=== PATIENT | female | born 1960 | race Caucasian/White ===

== ENCOUNTER → 2016-12-06 | Outpatient (CLI) | payer MEDICARE ==
--- NOTE | 2016-12-07 13:04 | CR ---
EXAM DATE: 12/06/16 PATIENT'S AGE: 56 Patient: BEATRICE WELLS Facility: [place], [place] Site . Site : [id number] Study: XRay Chest [id number]/23/2017 4:48:38 PM Ordering Physician: Shin Zimmerman Final Report: INDICATION: Cough for 4 days TECHNIQUE: Chest 2 views. COMPARISON: November 30, 2014 FINDINGS: Cardiovascular and mediastinum: Heart size and vasculature are normal in caliber and appearance. Mediastinum is within normal limits. Lungs and pleural spaces: Lungs are clear. No sign of infiltrate or mass. No sign of pleural effusion. No pneumothorax. Bones and soft tissues: No significant findings. IMPRESSION: No sign of acute disease. Dictated by Nikki Cortez MD @ Dec 07 2016 12:40AM (Electronic Signature) Report Signed by Proxy and Original Signed Document filed in the Medical Record. MTDD
== END | disposition home or self-care (01) ==
LOC: MW.CHFP 16:16
PROVIDERS: ATTEND Physician Assistant
DX: R05 Cough (principal); J20.9 Acute bronchitis, unspecified
CPT/HCPCS: 36415; 71020; 85025; G0463

== ENCOUNTER 2018-10-21 09:21 | Day surgery (SDC) | payer MEDICARE ==
[~2018-10-21 09:21] MED LIST: Lactated Ringers 1,000 ML IV SCH; Sodium Chloride 0.9% 10 ML Syringe FLUSH PRN; Sodium Chloride 0.9% 2.5 ML Syringe FLUSH PRN
[2018-10-21] MEDS ORDERED: Propofol 200 MG/20 ML SDV ONE (09:32)
[2018-10-21] MEDS ORDERED: Lidocaine 2% 5 ML SDV ONE (09:32)
[2018-10-21] MEDS ORDERED: Midazolam 1 MG/ML 2 ML SDV ONE (09:32)
[2018-10-21] MEDS ORDERED: fentaNYL 100 MCG/2 ML SDV ONE (09:33)
--- NOTE | 2018-10-21 10:08 | PCM.PREANE ---
Preanesthetic Assessment - Anesthesia/Transfusion/Family Hx Anesthesia History: Prior Anesthesia Without Reaction Other Type of Anesthesia Reaction Comment: Reports "very slow to come out of it ", no known family hx prblms Family History of Anesthesia Reaction: No Transfusion History: No Prior Transfusion(s) - Review of Systems General: No Symptoms Pulmonary: No Symptoms Cardiovascular: No Symptoms Gastrointestinal: No Symptoms Neurological: Other (cerebral palsey) - Physical Assessment NPO Status Date: 10/20/18 Height: 1.63 m Weight: 81.647 kg ASA Class: 2 Mental Status: Alert & Oriented x3 Airway Class: Mallampati = 2 Dentition: Reports: Normal Dentition ROM/Head Extension: Full Lungs: Clear to Auscultation, Normal Respiratory Effort Cardiovascular: Regular Rate, Regular Rhythm - Allergies Allergies/Adverse Reactions: Allergies Allergy/AdvReac Type Severity Reaction Status Date / Time No Known Allergies Allergy Verified 10/15/18 11:15 - Blood Blood Available: No - Anesthesia Plan Pre-Op Medication Ordered: None - Acknowledgements Anesthesia Type Planned: MAC Pt an Appropriate Candidate for the Planned Anesthesia: Yes Alternatives and Risks of Anesthesia Discussed w Pt/Guardian: Yes Pt/Guardian Understands and Agrees with Anesthesia Plan: Yes Additional Comments: PMH: cerebral palsy, GERD PLAN: MAC/TIVA PreAnesthesia Questionnaire Gastrointestinal History: Reports: GERD Musculoskeletal History: Reports: Osteoarthritis Neurological History: Reports: Cerebral Palsy, Other (See Below) Other Neuro History: uses walker and wheelchair Endocrine/Metabolic History: Reports: Obesity/BMI 30+, Osteopenia - Past Surgical History Head Surgeries/Procedures: Reports: None HEENT Surgical History: Reports: Naso-Sinus Surgery Other HEENT Surgeries/Procedures: hx septoplasty Musculoskeletal Surgical History: Reports: Knee Replacement Other Musculoskeletal Surgeries/Procedures:: hx kamla knee replacements - SUBSTANCE USE Smoking Status *Q: Never Smoker Recreational Drug Use History: No - HOME MEDS Home Medications: Home Meds Calcium Carbonate [Calcium] 1 tab.chew CHEW DAILY 10/15/18 [History] Cholecalciferol (Vitamin D3) [Vitamin D3] 1,000 units PO DAILY 10/15/18 [History ] Multivitamin [Multivitamins] 1 tab PO DAILY 10/15/18 [History] Omeprazole Magnesium [Prilosec Otc] 20 mg PO DAILY 10/15/18 [History] - CURRENT (IN HOUSE) MEDS Current Meds: Current Medications Lactated Ringer's (Ringers, Lactated) 1,000 mls @ 125 mls/hr IV ASDIRECTED MARISOL Sodium Chloride (Saline Flush) 10 ml FLUSH ASDIRECTED PRN PRN Reason: Keep Vein Open Sodium Chloride (Saline Flush) 2.5 ml FLUSH ASDIRECTED PRN PRN Reason: Keep Vein Open Sodium Chloride (Saline Flush) 10 ml FLUSH ASDIRECTED PRN PRN Reason: Keep Vein Open Sodium Chloride (Saline Flush) 2.5 ml FLUSH ASDIRECTED PRN PRN Reason: Keep Vein Open Discontinued Medications Fentanyl (Sublimaze) Confirm Administered Dose 100 mcg .ROUTE .STK-MED ONE Stop: 10/21/18 09:34 Lidocaine (Xylocaine-Mpf 2%) Confirm Administered Dose 5 ml .ROUTE .STK-MED ONE Stop: 10/21/18 09:33 Midazolam HCl (Versed 1 Mg/Ml) Confirm Administered Dose 2 mg .ROUTE .STK-MED ONE Stop: 10/21/18 09:33 Propofol (Diprivan 20 Ml) Confirm Administered Dose 400 mg .ROUTE .STK-MED ONE Stop: 10/21/18 09:33
[2018-10-21] MEDS ORDERED: Phenylephrine/Normal Saline 100 MCG/ML 10 ML Syringe ONE (11:42)
[2018-10-21] MEDS ORDERED: Succinylcholine 200 MG/10 ML MDV ONE (11:42)
--- NOTE | 2018-10-21 12:04 | PCM.OPNOTE ---
- General Post-Op/Procedure Note Date of Surgery/Procedure: 10/21/18 Operative Procedure(s): Diagnostic EGD and colonoscopy Findings: Severe esophagitis with an irregular appearing mass above the GE junction. Sessile ~1 cm mass just above the anal canal in the left anterior position. Pre Op Diagnosis: Reflux, Screening colonoscopy Post-Op Diagnosis: Severe esophagitis, esophageal mass, rectal mass Anesthesia Technique: MAC Primary Surgeon: Cher Foreman Condition: Good
--- NOTE | 2018-10-21 12:20 | PCM.POSTAN ---
POST ANESTHESIA ASSESSMENT - MENTAL STATUS Mental Status: Alert, Oriented - RESPIRATORY Respiratory Status: Respiratory Rate WNL, Airway Patent, O2 Saturation Stable - CARDIOVASCULAR CV Status: Pulse Rate WNL, Blood Pressure Stable - GASTROINTESTINAL GI Status: No Symptoms - PAIN Pain Score: 0 - POST OP HYDRATION Hydration Status: Adequate & Stable
--- NOTE | 2018-10-21 12:43 | PCM48HPAN ---
Post Anesthesia Note - EVALUATION WITHIN 48HRS OF ANESTHETIC Vital Signs in Normal Range: Yes Patient Participated in Evaluation: Yes Respiratory Function Stable: Yes Airway Patent: Yes Cardiovascular Function Stable: Yes Hydration Status Stable: Yes Pain Control Satisfactory: Yes Nausea and Vomiting Control Satisfactory: Yes Mental Status Recovered: Yes Resp Rate: 16
[2018-10-21 12:50] VITALS: BP 99/65
--- NOTE | 2018-10-21 21:05 | OR ---
SURGEON: KATHY OMER MD DATE OF PROCEDURE: 10/21/2018 PREOPERATIVE DIAGNOSIS: Screening colonoscopy, belching. POSTOPERATIVE DIAGNOSES: 1. Hyperplastic gastric polyps. 2. Ulcerative esophagitis. 3. Esophageal mass. 4. Rectal mass. PROCEDURE PERFORMED: Diagnostic EGD and screening colonoscopy. ANESTHESIA: MAC. INSTRUMENT USED: Olympus endoscope and colonoscope. EXTENT OF EXAM: To the second portion of duodenum, to the cecum. PREPARATION: Good. LIMITATIONS: None. INDICATIONS: The patient is a 58-year-old female with cerebral palsy, who presents for screening colonoscopy. On further examination, the patient does complain of some reflux and has recently had some increased belching. The patient and I discussed the need for diagnostic EGD and colonoscopy. We discussed the procedures, expected perioperative course, and risks including bleeding, infection, or damage to surrounding structures including perforation. The patient verbalized understanding and wishes to proceed. PROCEDURE IN DETAIL: The patient was brought to the endoscopy suite and placed in a beach chair position. A time-out was completed verifying the patient's name, age, date of , allergies, and procedure to be performed. A bite block was placed in the patient's mouth. Monitored anesthesia care was induced and continuous oxygen was provided via nasal cannula throughout the procedure. After adequate sedation was achieved, a well lubricated endoscope was placed in the patient's mouth and advanced under direct visualization to the second portion of duodenum. This appeared normal and a photograph was taken. The scope was then fully withdrawn while examining the color, texture, anatomy, and integrity of the mucosa of the upper GI tract. The duodenum appeared normal. The scope was brought into the stomach and a photograph taken of the GE junction and the pylorus. Both appeared normal. There was no evidence of gross inflammation or ulceration within the stomach lining. Biopsies were taken of the gastric antrum, body, and fundus and sent for histologic review and an H. pylori testing. She was noted to have some hyperplastic polyps of the gastric body. One of these was biopsied. The scope was then brought into the distal esophagus. Immediately, I encountered irregular-appearing mucosa. Just above this, the distal 1/3 of the esophagus was ulcerated, friable, and bleeding. Several pictures of this were taken. A biopsy was taken of the ulcerated area as well as one of the irregular-appearing tissue around the GE junction. This caused significant bleeding. Fortunately, the patient coagulated and I did not have to pursue any more aggressive means to stop the bleeding. The proximal half of her esophagus appeared normal. During the case, the patient was refluxing stomach contents in the distal esophagus consistent with gastroesophageal reflux disease. After the scope was removed, the patient continued to reflux and a small amount of secretions and/or this affluent got on the patient's cords. She had some laryngeal spasm which did resolve with time and suctioning, however, given the need to complete her colonoscopy, the decision was made to intubate her to protect her airway. This was performed by Anesthesia. Once the patient was stable, we then placed her in a left lateral decubitus position and I performed a digital rectal exam. This exam initially felt normal. A well- lubricated colonoscope was inserted in the rectum and advanced under direct visualization to the level of cecum. The cecum was identified by both visual and anatomic landmarks. A photograph was taken of the cecal cap as well as with the scope retroflexed within the cecum. The scope was then fully withdrawn while examining the color, texture, anatomy, and integrity of the mucosa from the cecum to the anal canal. Just above the anal canal, the patient was noted to have a sessile polyp. This had the characteristic appearance of a tubulovillous adenoma. Given its location and sessile nature, the decision was made to not attempt resection endoscopically. A photograph was taken of this polyp. I attempted to retroflex the scope within the rectum, but was unable to do so. The scope was straightened out and fully withdrawn. The cecum to anus time was 10 minutes. The patient tolerated the procedure well and was taken to PACU in stable condition. ENDOSCOPIC DIAGNOSES: 1. Hyperplastic gastric polyps. 2. Ulcerative esophagitis. 3. Esophageal mass. 4. Rectal mass. RECOMMENDATIONS: I visited with the patient and her in the PACU. We reviewed the images that I took during both the EGD and colonoscopy. I will await biopsies from the esophagus and then make further decisions as to our treatment for both of these conditions in 2 weeks when I see her in clinic. In the meantime, I switched her to pantoprazole and sucralfate. PALAK / JUAN FRANCISCO /[id number] [facility]
== END 2018-10-21 12:52 | disposition home or self-care (01) ==
LOC: MW.SDS 09:21
PROVIDERS: ATTEND Surgery
DX: Z12.11 Encounter for screening for malignant neoplasm of colon (principal); K62.1 Rectal polyp; K22.10 Ulcer of esophagus without bleeding; K21.9 Gastro-esophageal reflux disease without esophagitis; K31.7 Polyp of stomach and duodenum; E78.5 Hyperlipidemia, unspecified; E66.9 Obesity, unspecified; Z68.31 Body mass index [BMI] 31.0-31.9, adult; G80.9 Cerebral palsy, unspecified; Z79.899 Other long term (current) drug therapy
CPT/HCPCS: 43239; G0121; J0330; J2250; J2370; J2704; J3010; J7120

== ENCOUNTER 2019-04-09 09:45 | Day surgery (SDC) | payer MEDICARE ==
[~2019-04-09 09:45] MED LIST changes: +Sodium Chloride 0.9% 10 ML SDV IV PRN
--- NOTE | 2019-04-09 11:03 | PCM.PREANE ---
Preanesthetic Assessment - Anesthesia/Transfusion/Family Hx Anesthesia History: Prior Anesthesia Without Reaction Other Type of Anesthesia Reaction Comment: hard to wake after tubal ligation Family History of Anesthesia Reaction: No Transfusion History: No Prior Transfusion(s) - Review of Systems General: No Symptoms Pulmonary: No Symptoms Cardiovascular: No Symptoms Neurological: No Symptoms Other: Reports: None - Physical Assessment NPO Status Date: 04/08/19 Height: 5 ft 4 in Weight: 81.647 kg ASA Class: 2 Mental Status: Alert & Oriented x3 Airway Class: Mallampati = 3 Dentition: Reports: Normal Dentition ROM/Head Extension: Full Lungs: Clear to Auscultation, Normal Respiratory Effort Cardiovascular: Regular Rate, Regular Rhythm - Allergies Allergies/Adverse Reactions: Allergies Allergy/AdvReac Type Severity Reaction Status Date / Time No Known Allergies Allergy Verified 04/07/19 08:45 - Blood Blood Available: No - Anesthesia Plan Pre-Op Medication Ordered: None - Acknowledgements Anesthesia Type Planned: General Anesthesia Pt an Appropriate Candidate for the Planned Anesthesia: Yes Alternatives and Risks of Anesthesia Discussed w Pt/Guardian: Yes Pt/Guardian Understands and Agrees with Anesthesia Plan: Yes Additional Comments: anes prob list: gerd, cerebral palsey, JUDI PLAN: tiva PreAnesthesia Questionnaire HEENT History: Reports: None Cardiovascular History: Reports: None Respiratory History: Reports: None Gastrointestinal History: Reports: GERD Genitourinary History: Reports: None Musculoskeletal History: Reports: Osteoarthritis Neurological History: Reports: Cerebral Palsy, Other (See Below) Other Neuro History: uses walker and wheelchair Psychiatric History: Reports: None Endocrine/Metabolic History: Reports: Osteopenia Hematologic History: Reports: None Immunologic History: Reports: None Oncologic (Cancer) History: Reports: None Dermatologic History: Reports: None - Past Surgical History Head Surgeries/Procedures: Reports: None HEENT Surgical History: Reports: Naso-Sinus Surgery Other HEENT Surgeries/Procedures: hx septoplasty Cardiovascular Surgical History: Reports: None Respiratory Surgical History: Reports: None GI Surgical History: Reports: Colonoscopy, EGD, Other (See Below) Other GI Surgeries/Procedures: "cyst" removed from anal canal Female Surgical History: Reports: Tubal Ligation Endocrine Surgical History: Reports: None Neurological Surgical History: Reports: None Musculoskeletal Surgical History: Reports: Knee Replacement Other Musculoskeletal Surgeries/Procedures:: hx kamla knee replacements Oncologic Surgical History: Reports: None Dermatological Surgical History: Reports: None - SUBSTANCE USE Smoking Status *Q: Never Smoker Recreational Drug Use History: No - HOME MEDS Home Medications: Home Meds Calcium Carbonate [Calcium] 1 tab.chew CHEW DAILY 10/15/18 [History] Cholecalciferol (Vitamin D3) [Vitamin D3] 1,000 units PO DAILY 10/15/18 [History ] Multivitamin [Multivitamins] 1 tab PO DAILY 10/15/18 [History] Pantoprazole [ProTONIX] 40 mg PO DAILY #30 tab.cr 10/21/18 [Rx] Aspirin [Halfprin] 81 mg PO DAILY 04/07/19 [History] - CURRENT (IN HOUSE) MEDS Current Meds: Current Medications Lactated Ringer's (Ringers, Lactated) 1,000 mls @ 125 mls/hr IV ASDIRECTED MARISOL Sodium Chloride (Saline Flush) 10 ml FLUSH ASDIRECTED PRN PRN Reason: Keep Vein Open Sodium Chloride (Saline Flush) 2.5 ml FLUSH ASDIRECTED PRN PRN Reason: Keep Vein Open Sodium Chloride (Normal Saline) 10 ml IV ASDIRECTED PRN PRN Reason: IV Use
[2019-04-09] MEDS ORDERED: Propofol 200 MG/20 ML SDV ONE (11:26)
[2019-04-09] MEDS ORDERED: Lidocaine 2% 5 ML SDV ONE (11:26)
--- NOTE | 2019-04-09 12:32 | PCM48HPAN ---
Post Anesthesia Note - EVALUATION WITHIN 48HRS OF ANESTHETIC Vital Signs in Normal Range: Yes Patient Participated in Evaluation: Yes Respiratory Function Stable: Yes Airway Patent: Yes Cardiovascular Function Stable: Yes Hydration Status Stable: Yes Pain Control Satisfactory: Yes Nausea and Vomiting Control Satisfactory: Yes Mental Status Recovered: Yes
--- NOTE | 2019-04-09 12:32 | PCM.POSTAN ---
POST ANESTHESIA ASSESSMENT - MENTAL STATUS Mental Status: Alert, Oriented - RESPIRATORY Respiratory Status: Respiratory Rate WNL, Airway Patent, O2 Saturation Stable - CARDIOVASCULAR CV Status: Pulse Rate WNL, Blood Pressure Stable - GASTROINTESTINAL GI Status: No Symptoms - POST OP HYDRATION Hydration Status: Adequate & Stable
--- NOTE | 2019-04-09 13:29 | PCM.OPNOTE ---
- General Post-Op/Procedure Note Date of Surgery/Procedure: 04/09/19 Operative Procedure(s): Diagnostic EGD Findings: Healed esophagitis and ulcers Pre Op Diagnosis: Hiatal hernia with GERD Post-Op Diagnosis: same Anesthesia Technique: MAC Primary Surgeon: Cher Foreman Condition: Good Free Text/Narrative:: Intake & Output 04/08/19 04/09/19 04/09/19 22:59 06:59 14:59 Intake Total 900 Balance 900
[2019-04-09 13:51] VITALS: BP 103/59
--- NOTE | 2019-04-10 12:32 | OR ---
SURGEON: CHER FOREMAN MD DATE OF PROCEDURE: 04/09/2019 PREOPERATIVE DIAGNOSIS: Hiatal hernia with gastroesophageal reflux disease and esophagitis. POSTOPERATIVE DIAGNOSIS: Hiatal hernia with gastroesophageal reflux disease. PROCEDURE PERFORMED: Diagnostic esophagogastroduodenoscopy with biopsies. PRIMARY SURGEON: Cher Foreman MD. ANESTHESIA: MAC. INSTRUMENT USED: Olympus endoscope. EXTENT OF EXAM: To the second portion of duodenum. PREPARATION: Good. LIMITATIONS: None. INDICATION FOR EXAMINATION: The patient is a 59-year-old female on whom I performed a diagnostic EGD on earlier this year. She was found to have a hiatal hernia associated with severe esophagitis and esophageal ulcers. She was placed on pantoprazole. She reports improvement in her symptoms and has been treating this as well with dietary modifications. The decision was made to proceed with a diagnostic EGD in order to ensure that there has been good resolution of her esophagitis. The patient and I discussed the procedure, expected perioperative course, and risks including bleeding, infection, or damage to surrounding structures including perforation. The patient verbalized understanding and wishes to proceed. PROCEDURE IN DETAIL: The patient was brought into the endoscopy suite and placed in a beach chair position. A time-out was completed verifying the patient's name, age, date of , allergies, and procedure to be performed. A bite block was placed in the patient's mouth. Monitored anesthesia care was induced and continuous oxygen was provided via nasal cannula throughout the procedure. After adequate sedation was achieved, a well lubricated endoscope was placed in the patient's mouth and advanced under direct visualization to the second portion of duodenum. This appeared normal and a photograph was taken. The scope was then fully withdrawn while examining the color, texture, anatomy, and integrity of the mucosa of the upper GI tract. The duodenum appeared normal. The scope was then brought into the stomach. A photograph was taken of the GE junction as well as the pylorus. The patient's previously noted hiatal hernia was found. The gastric mucosa appeared free of gross inflammation or ulceration. There were a few small hyperplastic polyps within the body of the stomach. The scope was then brought to the hiatal hernia sac and a photograph was taken. A photograph was then taken of the Z-line which appeared only mildly irregular. The distal esophageal mucosa appeared pink and healthy consistent with good healing of her previous esophagitis. Biopsies were taken along this area and sent to Pathology, labeled as esophageal biopsy. The remainder of the esophageal mucosa was free of pathology. The scope was removed and the procedure terminated. The patient tolerated this well and was taken to PACU in stable condition. ENDOSCOPIC DIAGNOSIS: Hiatal hernia with gastroesophageal reflux disease. RECOMMENDATIONS: Follow up in clinic in 2 weeks. PALAK CHICAS /[id number]
== END 2019-04-09 13:00 | disposition home or self-care (01) ==
LOC: MW.SDS 09:45
PROVIDERS: ATTEND Surgery
DX: Z09 Encounter for follow-up examination after completed treatment for conditions other than malignant neoplasm (principal); K21.9 Gastro-esophageal reflux disease without esophagitis; K44.9 Diaphragmatic hernia without obstruction or gangrene; K31.7 Polyp of stomach and duodenum; K22.8 Other specified diseases of esophagus; E78.5 Hyperlipidemia, unspecified; F17.290 Nicotine dependence, other tobacco product, uncomplicated; G47.33 Obstructive sleep apnea (adult) (pediatric); G80.9 Cerebral palsy, unspecified; M19.90 Unspecified osteoarthritis, unspecified site; M85.80 Other specified disorders of bone density and structure, unspecified site; E66.9 Obesity, unspecified; Z68.30 Body mass index [BMI] 30.0-30.9, adult; Z87.19 Personal history of other diseases of the digestive system; Z79.82 Long term (current) use of aspirin; Z79.899 Other long term (current) drug therapy
CPT/HCPCS: 00731; J2001; J2704